=== PATIENT | male | born 1995 ===

== ENCOUNTER → 2020-04-24 | Outpatient (CLI) | payer SELFPAY ==
[2020-04-24 10:49] LABS: PV SEMEN COLOR STRAW; PV SEMEN PH 8.6 (>7.1); PV SEMEN VISCOSITY LOW (NORMAL); PV VOLUME 3.1 mL (>1.4)
[2020-04-24 10:53] LABS: PV NONMOTILE CONCENTRATION 3.9 X10^6/mL; PV NONMOTILE COUNT1 38; PV NONMOTILE COUNT2 39; PV ROUND CELL CONCENTRATION 0.9 X10^6/mL (<5.1); PV ROUND CELL COUNT1 10; PV ROUND CELL COUNT2 8
[2020-04-24 11:32] LABS: PV SPERM CONCENTRATION 10.5 X10^6/mL (0.0); PV SPERM MOTILITY 65 % (0)
== END ==
LOC: LAB 10:18
PROVIDERS: ATTEND General Practice
DX: Z30.2 Encounter for sterilization (principal)
CPT/HCPCS: 89321